=== PATIENT | male | born 1960 | race Caucasian/White ===

== ENCOUNTER → 2019-11-11 08:41 | Outpatient (BNVA) | payer BC, SELFPAY | PROVIDERS: PCP Nurse Practitioner Family; Visit Provider Specialist | DX: G35 Multiple sclerosis (principal) | CPT/HCPCS: 99214 ==

== ENCOUNTER 2019-11-29 09:10 | Outpatient (CLI) | payer BC, SELFPAY ==
--- NOTE | 2019-11-29 | MR_ITS ---
WS: [id number] MRI BRAIN WITH AND WITHOUT CONTRAST HISTORY: MS COMPARISON: 06/07/2016 TECHNIQUE: Multiplanar imaging performed through the brain with [employer]'s IV. No acute infarcts. Multiple T2 and FLAIR signal hyperintensity surrounding the lateral ventricles in a perpendicular orientation. These are most significant around the lateral ventricles and corpus call osum. No significant progression of white matter demyelinating lesions. Necrotic lesion adjacent to t he posterior RIGHT lateral ventricle is similar to the prior study. There a few subcortical white mat ter lesions also which are similar. No abnormalities within the julia or cerebellum appreciated. No susceptibility artifacts or prior lacunar infarcts. Ventricles and extra-axial spaces are normal. Clivus and pituitary gland are normal. Visualized posterior fossa and brainstem are also normal. No enhancing lesions with the brain. The demyelinating lesions in the corpus callosum do not enhance. There is a mild bulbous appearance to the supraclinoid LEFT ICA and the cavernous portion of the LEF T ICA. This is asymmetric to the RIGHT. The RIGHT intracranial ICA is very small caliber. Stable sinc e 2016. Very similar appearance to prior studies. Better visualized on today's imaging study due to b james image quality. Dural venous sinuses are normal. Paranasal sinuses: Well aerated with no significant disease. Mastoid air cells: Normal. Calvarium and scalp: Normal. MR/MR head wo/w con [id number] IMPRESSION: 1. Numerous demyelinating lesions within a typical distribution for multiple s clerosis. No enhancing active lesions. 2. No progression of demyelinating lesion since 06/07/2016. 3. Mildly dilated and bulbous appearance to the LEFT cavernous carotid and sup raclinoid ICA. Very similar in appearance to prior studies. May be due to ectas ia. Recommend additional imaging to exclude aneurysm. The RIGHT intracranial IC A is very small caliber also. Long-term finding since 2016. Consider further ev aluation of the carotid arteries and [place]. MR angiogram [place] and carotids recommended.
--- NOTE | 2019-11-29 | MR_ITS ---
WS: [id number] MRI CERVICAL SPINE with and without contrast. HISTORY: MULTIPLE SCLEROSIS COMPARISON: 11/11/2013 Normal cervical alignment. Mild disc space narrowing and desiccation at C5-6. No marrow edema or frac ture. Posterior fossa is negative. Signal within the cervical cord is normal. Visualized posterior fossa is unremarkable. Craniocervical junction, C1 and C2 relationship, odontoid process and soft tissues are normal. C2-C3: Normal. C3-C4: Mild osteophytic ridging. Mild narrowing of the LEFT foramen. C4-C5: Mild annular disc bulging and osteophytic ridging. Mild RIGHT foraminal stenosis due to osteop hyte disease. C5-C6: Mild annular disc bulging and vertebral body osteophytes. No significant stenosis. C6-C7: Mild annular disc bulging and osteophytic ridging. Mild bilateral foraminal narrowing. C7-T1: Normal. Postcontrast images are negative for enhancing cervical cord lesions. No demyelinating lesions are id entified. Paravertebral soft tissues are negative. MR/MR cervical spine wo/w [id number] IMPRESSION: 1. No demyelinating lesions in the cervical cord. 2. No significant central or foraminal stenosis. 3. Multilevel mild foraminal stenosis as above.
== END 2019-11-29 09:11 | disposition home or self-care (01) ==
LOC: RADWPI 09:15
PROVIDERS: PCP Nurse Practitioner Family; Visit Provider Specialist
DX: G35 Multiple sclerosis (principal); M48.00 Spinal stenosis, site unspecified
CPT/HCPCS: 70553; 72156; A9579

== ENCOUNTER → 2020-01-27 14:45 | Outpatient (BNVA) | payer BC, SELFPAY | PROVIDERS: PCP Nurse Practitioner Family; Visit Provider Specialist | DX: G35 Multiple sclerosis (principal) | CPT/HCPCS: 99213 ==

== ENCOUNTER → 2021-01-25 13:58 | Outpatient (BNVA) | payer BC, SELFPAY | PROVIDERS: PCP Nurse Practitioner Family; Visit Provider Specialist | DX: G35 Multiple sclerosis (principal) | CPT/HCPCS: 99213 ==

== ENCOUNTER → 2021-05-21 13:06 | Outpatient (BNVA) | payer BC, SELFPAY | PROVIDERS: PCP Nurse Practitioner Family; Visit Provider Internal Medicine | DX: E89.0 Postprocedural hypothyroidism (principal); E07.9 Disorder of thyroid, unspecified | CPT/HCPCS: 99214 ==

== ENCOUNTER 2021-10-19 15:08 | Outpatient (CLI) | payer BC, SELFPAY ==
[2021-10-19 16:07] LABS: Free T4 Free Thyroxine 1.03 ng/dL (0.82-1.77); Thyroid Stimulating Hormone 11.88 uIU/mL (0.27-4.20)
== END 2021-10-19 15:09 | disposition home or self-care (01) ==
LOC: LAB 15:12
PROVIDERS: PCP Nurse Practitioner Family; Visit Provider Internal Medicine
DX: E89.0 Postprocedural hypothyroidism (principal)
CPT/HCPCS: 36415; 84439; 84443